=== PATIENT | female | born 2000 | race Two or more races ===

== ENCOUNTER 2018-05-08 14:06 | Emergency (ER) | payer OTHER ==
[~2018-05-08] VITALS: Ht 165.1 cm; Wt 81.6 kg
[2018-05-08 14:10] VITALS: Ht 165.1 cm; Wt 81.6 kg
[2018-05-08 15:14] VITALS: BP 126/80
== END 2018-05-08 16:45 | disposition home or self-care (01) ==
LOC: ED 14:06
DX: S20.219A Contusion of unspecified front wall of thorax, initial encounter (principal); S30.1XXA Contusion of abdominal wall, initial encounter; S50.12XA Contusion of left forearm, initial encounter; V49.88XA Car occupant (driver) (passenger) injured in other specified transport accidents, initial encounter; Y93.89 Activity, other specified; Y92.89 Other specified places as the place of occurrence of the external cause; Y99.8 Other external cause status
CPT/HCPCS: J1885; Q0092